=== PATIENT | male | born 1955 | race Caucasian/White ===

== ENCOUNTER 2020-01-30 19:54 | Emergency (ER) | payer OTHER ==
[2020-01-30] MEDS ORDERED: NORMAL SALINE 1000 ML 1,000 ML IV ONE (20:28)
--- NOTE | 2020-01-30 20:37 | ER Document Report ---
ED Medical Screen (RME) - General Chief Complaint: Snake Bite Stated Complaint: COPPERHEAD BITE TO RIGHT FOOT Time Seen by Provider: 01/30/20 20:26 Mode of Arrival: Ambulatory Information source: Patient Notes: HPI; 64-year-old male presents emergency room stating he was bitten by a copperhead snake on his right lateral foot less than 1 hour ago. Patient states he did kill it and confirmed that it was a copperhead snake. Unknown last tetanus shot. States he feels like there is still something stuck in his foot. PE: Alert and oriented x3. Lungs: Clear to auscultation without rales, rhonchi or wheezes. Heart: Regular rate rhythm without murmurs, rubs, gallops. There is a puncture wound noted to the right lateral mid foot. No active bleeding. Area was marked to monitor for swelling. Snakebite protocol initiatednurse aware. I have greeted and performed a rapid initial assessment of this patient. A comprehensive ED assessment and evaluation of the patient, analysis of test results and completion of the medical decision making process will be conducted by additional ED providers. I have specifically instructed the patient or family members with the patient to immediately return to any nursing staff should anything change in the patient's condition or with their chief complaint. TRAVEL OUTSIDE OF THE [place] IN LAST 30 DAYS: No Physical Exam - Vital signs Vitals: Temp Pulse Resp BP Pulse Ox 97.9 F 70 16 176/74 H 91 L 01/30/20 20:08 01/30/20 20:08 01/30/20 20:08 01/30/20 20:08 01/30/20 20:08 Course - Vital Signs Vital signs: Temp Pulse Resp BP Pulse Ox 97.9 F 70 16 176/74 H 91 L 01/30/20 20:08 01/30/20 20:08 01/30/20 20:08 01/30/20 20:08 01/30/20 20:08
[2020-01-30] MEDS ORDERED: DIPH/PERTUSS(ACELL)/TETANUS VAC/PF 0.5 ML SYR (>=10YO) IM ONE (20:38)
--- NOTE | 2020-01-30 21:14 | ER Document Report ---
ED Animal Bite - General Chief Complaint: Snake Bite Stated Complaint: COPPERHEAD BITE TO RIGHT FOOT Time Seen by Provider: 01/30/20 20:26 Primary Care Provider: ELPIDIO BYRNES [Primary Care Provider] - 02/02/20 Mode of Arrival: Ambulatory Notes: Patient is a 64-year-old male that comes emergency department for chief complaint of snakebite to the right foot. 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 Patient states that he had a tiny amount of bleeding to the site and he has had developed some swelling and mild pain. He states he also feels like there is a foreign body, almost like there is something stuck in the foot. His tetanus is not up-to-date. Patient denies any other injuries or any other complaints. Patient takes no daily medication, denies smoking, states he does not have any diagnosed medical history. TRAVEL OUTSIDE OF THE [place] IN LAST 30 DAYS: No Past Medical History - General Information source: Patient - Social History Smoking Status: Never Smoker Frequency of alcohol use: None Drug Abuse: None Lives with: Family Family History: Reviewed & Not Pertinent Review of Systems - Review of Systems Constitutional: No symptoms reported EENT: No symptoms reported Cardiovascular: No symptoms reported Respiratory: No symptoms reported Gastrointestinal: No symptoms reported Genitourinary: No symptoms reported Male Genitourinary: No symptoms reported Musculoskeletal: See HPI Skin: See HPI Hematologic/Lymphatic: No symptoms reported Neurological/Psychological: No symptoms reported Physical Exam - Vital signs Vitals: Temp Pulse Resp BP Pulse Ox 97.9 F 70 16 176/74 H 91 L 01/30/20 20:08 01/30/20 20:08 01/30/20 20:08 01/30/20 20:08 01/30/20 20:08 - Notes Notes: GENERAL: Alert, interacts well. No acute distress. HEAD: Normocephalic, atraumatic. EYES: Pupils equal, round, and reactive to light. Extraocular movements intact. ENT: Oral mucosa moist, tongue midline. Oropharynx unremarkable. Airway patent. LUNGS: Clear to auscultation bilaterally, no wheezes, rales, or rhonchi. No respiratory distress. Non-tender chest wall. HEART: Regular rate and rhythm. No murmur ABDOMEN: Soft, non-tender. Non-distended. EXTREMITIES: There is a 4 cm vertical and 2 cm horizontal area of ecchymosis and swelling over the right lateral midfoot dorsally. In the center this there are noted to be 2 small puncture arellano. Normal range of motion of the ankle, normal dorsalis pedis, normal capillary refill and sensation of the toes, normal lower extremity exam otherwise. BACK: no cervical, thoracic, lumbar midline tenderness. No saddle anesthesia, normal distal neurovascular exam. Moves all extremities in full range of motion. NEUROLOGICAL: Alert and oriented x3. Normal speech. Cranial nerves II through XII grossly intact. Strength 5/5 in all extremities. PSYCH: Normal affect, normal mood. SKIN: Warm, dry, normal turgor. No rashes or lesions noted. Course - Re-evaluation Re-evalutation: 01/30/20 21:10 Patient declines pain medication, he also states that he would prefer not to be given the antivenom (CroFab) even if he has envenomation unless absolutely needed. Patient has a 4 cm x 2 cm area of swelling with 2 puncture wounds consistent with snakebite. Area is consistent with an envenomation. Fortunately this is on the lateral aspect of the right foot and at this time there is no severe extension even though this happened almost 2 hours ago. 01/30/20 21:17 Called and spoke with poison control, spoke with Katrin. Recommendation is monitoring for 8 hours from the bite time, labs to be performed at 6 hours after by time, cleanse wound, elevate 12 to 18 inches above the heart, update tetanus. Recommendation is not to initially give CroFab unless patient cannot flex ankle or cannot bend the toes. They are going to fax over additional details as well. Patient updated, states agreement. 01/30/20 23:00 Patient has had slight increase in swelling but he has normal range of motion of the ankle and toes, he does not have a severely worsening swelling, he has no other complaints, no constitutional symptoms. He requests Tylenol for pain. 01/31/20 Patient rechecked twice more. He had slight increase in swelling, however at approximately the 6-hour kit and then after patient had decrease in swelling which was noticeable on my evaluation and patient was remarking about this as well. Labs rechecked and unremarkable. Evaluation is very reassuring. Patient will be monitored to the 8-hour kit. Patient has been monitored for 8 hours since the bite. He has continued to have improvement on reevaluation, I discussed care, follow-up, and return cautions in detail. Patient states appreciation and agreement. He declines pain medication. Stable and well-appearing at time of discharge. - Vital Signs Vital signs: Temp Pulse Resp BP Pulse Ox 97.9 F 50 L 14 122/79 98 01/31/20 03:45 01/31/20 03:45 01/31/20 03:45 01/31/20 03:45 01/31/20 03:45 - Laboratory Result Diagrams: 01/31/20 01:20 01/30/20 21:10 Laboratory results interpreted by me: 01/30/20 01/30/20 01/31/20 21:10 21:10 01:20 RBC 4.19 L 4.01 L Hgb 13.0 L 12.5 L Hct 35.9 L Carbon Dioxide 31 H Discharge - Discharge Clinical Impression: Swelling of right foot Snake bite Qualifiers: Encounter type: initial encounter Qualified Code(s): W59.11XA - Bitten by nonvenomous snake, initial encounter Condition: Stable Disposition: HOME, SELF-CARE Additional Instructions: Your evaluation is consistent with a mild envenomation from the snakebite. Your evaluation and laboratory workup are reassuring. Recommendation is to elevate your leg as much as you can especially for the first 2 days. Do not take NSAIDs such as Advil/ibuprofen or naproxen/Aleve. You can take Tylenol if needed for pain (up to 1000 mg every 6 hours). Do not apply ice to the area. Keep the area clean, clean gently with soap and water, you can apply a loose bandage to the area but do not apply a compressive bandage. Follow-up with primary care in the next several days for recheck. Return if you worsen including severe worsening swelling or pain, developing or spreading redness, fever/chills, discolored drainage, or any other concerning or worsening symptoms. Referrals: [facility] [Primary [facility] Provider] - 02/02/20
[2020-01-30 21:25] LABS: ABSOLUTE BASOPHILS # (AUTO) 0.1 10^3/uL (0.0-0.2); ABSOLUTE EOSINOPHILS # (AUTO) 0.3 10^3/uL (0.0-0.6); ABSOLUTE LYMPHOCYTES (AUTO) 2.4 10^3/uL (0.5-4.7); ABSOLUTE MONOCYTES (AUTO) 0.6 10^3/uL (0.1-1.4); ABSOLUTE NEUT (AUTO) 2.8 10^3/uL (1.7-8.2); BASOPHILS % (AUTO) 1.3 % (0-2); EOSINOPHILS % (AUTO) 5.5 % (0-6); HEMATOCRIT 38.2 % (37.9-51.0); LYMPHOCYTES % (AUTO) 38.6 % (13-45); MEAN CORPUSCULAR VOLUME 91 fl (80-97); MONOCYTES % (AUTO) 10.1 % (3-13); PLATELET COUNT 176 10^3/uL (150-450); RED BLOOD COUNT 4.19 10^6/uL (4.35-5.55); RED CELL DISTRIBUTION WIDTH 13.6 % (11.5-14.0); SEGMENTED NEUTROPHILS % (AUTO) 44.5 % (42-78); TOTAL CELLS COUNTED % (AUTO) 100 %; WHITE BLOOD COUNT 6.2 10^3/uL (4.0-10.5)
[2020-01-30 21:31] LABS: INTERNATIONAL RATION (INR) 0.87; PROTHROMBIN TIME 12.1 SEC (11.4-15.4)
[2020-01-30 21:32] LABS: FIBRINOGEN 380 mg/dL (209-497); PARTIAL THROMBOPLASTIN TIME 32.4 SEC (23.5-35.8)
[2020-01-30 21:47] LABS: ANION GAP 7 (5-19); BLOOD UREA NITROGEN 13 mg/dL (7-20); CALCIUM 9.3 mg/dL (8.4-10.2); CARBON DIOXIDE 31 mmol/L (22-30); CHLORIDE 103 mmol/L (98-107); CREATINE KINASE 87 U/L (55-170); GLUCOSE 96 mg/dL (75-110); POTASSIUM 3.9 mmol/L (3.6-5.0)
[2020-01-30 21:50] LABS: D-DIMER 0.28 ug/mL (0.00-0.50)
--- NOTE | 2020-01-30 21:57 | RADIOLOGY REPORT (SQ) ---
EXAM DESCRIPTION: XR FOOT 1-2 VIEWS COMPLETED DATE/TME: 01/30/2020 21:10 CLINICAL HISTORY: 64 years, Male, ? snake bite; foreign body sensation COMPARISON: None. NUMBER OF VIEWS: 2 TECHNIQUE: AP and lateral views the right foot were obtained LIMITATIONS: None. FINDINGS: There is no acute bone or joint abnormality. No opaque foreign body is seen. There is no significant degenerative change. There is an incidental, 7 mm plantar spur. IMPRESSION: No acute abnormality as above. copyright 2010 [employer]- All Rights Reserved
[2020-01-30] MEDS ORDERED: ACETAMINOPHEN 325 MG TABLET PO ONE (23:22)
[2020-01-31 01:30] LABS: ABSOLUTE EOSINOPHILS # (AUTO) 0.2 10^3/uL (0.0-0.6); ABSOLUTE LYMPHOCYTES (AUTO) 1.9 10^3/uL (0.5-4.7); ABSOLUTE MONOCYTES (AUTO) 0.4 10^3/uL (0.1-1.4); ABSOLUTE NEUT (AUTO) 2.5 10^3/uL (1.7-8.2); EOSINOPHILS % (AUTO) 4.7 % (0-6); HEMATOCRIT 35.9 % (37.9-51.0); HEMOGLOBIN 12.5 g/dL (13.5-17.0); LYMPHOCYTES % (AUTO) 37.2 % (13-45); MEAN CORPUSCULAR HEMOGLOBIN 31.3 pg (27.0-33.4); MEAN CORPUSCULAR VOLUME 90 fl (80-97); MONOCYTES % (AUTO) 7.7 % (3-13); PLATELET COUNT 169 10^3/uL (150-450); RED BLOOD COUNT 4.01 10^6/uL (4.35-5.55); RED CELL DISTRIBUTION WIDTH 13.2 % (11.5-14.0); SEGMENTED NEUTROPHILS % (AUTO) 49.4 % (42-78); TOTAL CELLS COUNTED % (AUTO) 100 %
[2020-01-31] MEDS ORDERED: DIPH/PERTUSS(ACELL)/TETANUS VAC/PF 0.5 ML SYR (>=10YO) IM ONE (01:46)
[2020-01-31 01:47] LABS: INTERNATIONAL RATION (INR) 0.91; PROTHROMBIN TIME 12.5 SEC (11.4-15.4)
[2020-01-31 01:48] LABS: FIBRINOGEN 358 mg/dL (209-497); PARTIAL THROMBOPLASTIN TIME 33.6 SEC (23.5-35.8)
[2020-01-31 03:46] VITALS: BP 122/79
== END 2020-01-31 03:45 | disposition home or self-care (01) ==
LOC: ER 19:54
DX: S91.351A Open bite, right foot, initial encounter (principal); M79.89 Other specified soft tissue disorders; W59.11XA Bitten by nonvenomous snake, initial encounter; Z23 Encounter for immunization
CPT/HCPCS: 36415; 80048; 82550; 85025; 85379; 85384; 85610; 85730; 90471; 90715; 99284